=== PATIENT | male | born 1985 | race Caucasian/White ===

== ENCOUNTER 2019-11-05 10:31 | Emergency (ER) | payer OTHER, BC ==
[~2019-11-05] VITALS: Ht 172.7 cm; Wt 106.0 kg
[2019-11-05] MEDS ORDERED: SERT50TA29 (10:39)
[2019-11-05 11:48] LABS: BASO % 0.4 % (0.0-1.0); EOS # 0.1 10^3/uL (0.0-0.5); EOS % 0.5 % (0.0-3.0); HEMOGLOBIN 16.3 g/dl (13.5-17.5); LYMPH # 1.9 10^3/uL (1.5-5.0); LYMPH % 19.9 % (24.0-44.0); MEAN CORPUSCULAR VOLUME 88.2 fl (80.0-96.0); MONO # 0.7 10^3/uL (0.0-0.8); MONO % 7.2 % (0.0-5.0); NEUTROPHILS # 6.9 10^3/uL (1.5-8.5); NEUTROPHILS % 71.7 % (36.0-66.0); PLATELET COUNT, AUTOMATED 334 10^3/uL (150-450); RED BLOOD COUNT 5.44 10^6/uL (4.30-6.10); WHITE BLOOD COUNT 9.7 10^3/uL (4.0-10.0)
--- NOTE | 2019-11-05 12:07 | REP ---
UNENHANCED CT BRAIN: INDICATION: Numbness of right arm. COMPARISON: 07/02/2006 TECHNIQUE: Unenhanced axial CT images of the brain were obtained from the skull base to the vertex with coronal reconstructions provided. FINDINGS: There is no acute intracranial hemorrhage, acute cortical infarction, mass effect or hydrocephalus. There is hyper-attenuation within the left supraclinoid MCA. IMPRESSION: Possible hyperdense left MCA emmanuel in the supraclinoid region. No additional evidence or acute infarction. MRI brain with diffusion-weighted imaging could be performed for further evaluation as indicated. Unreviewed
[2019-11-05 12:17] LABS: BLOOD UREA NITROGEN 7 MG/DL (7-18); CALCIUM LEVEL 9.3 MG/DL (8.5-10.1); CARBON DIOXIDE LEVEL 25 MEQ/L (21-32); CHLORIDE LEVEL 105 MEQ/L (98-107); GLOMERULAR FILTRATION RATE > 60.0 (>60); GLUCOSE, FASTING 109 MG/DL (70-100); SODIUM LEVEL 135 MEQ/L (136-145)
[2019-11-05] MEDS ORDERED: ASPIRIN 81 MG CHEW TABLET PO ONE (13:00)
[2019-11-05 14:18] VITALS: BP 158/110
--- NOTE | 2019-11-05 14:49 | REP ---
LIMITED CERVICAL SPINE SERIES: AP and lateral views of the cervical spine performed. There is no compression fracture. There is slight reversal of the normal cervical lordosis. There is no prevertebral soft tissue swelling. Disc spaces are well preserved. IMPRESSION: Unremarkable AP and lateral cervical spine. Slight reversal of normal cervical lordosis with no significant degenerative change or evidence of fracture. Electronically Signed by Jeremi Casillas MD 11/05/2019 03:33 P
--- NOTE | 2019-11-06 08:00 | ECGEPIP ---
[facility] - ED Test Date: 2019-11-05 Pat Name: LAZARUS MORENO Department: Room: - Gender: Male Director Of Culture: trey : 1985 Requested By: LAZARUS GAN PA-C. Order Number: [id number] Reading MD: Aditya Donohue Measurements Intervals [place] Rate: 89 P: 57 MN: 138 QRS: 40 QRSD: 73 T: 37 QT: 341 QTc: 416 Interpretive Statements SINUS RHYTHM POSSIBLE LEFT ATRIAL ENLARGEMENT INCOMPLETE RIGHT BUNDLE BRANCH BLOCK NO PRIORS FOR COMPARISON Electronically Signed on 11-06-2019 8:00:13 EDT by Aditya Donohue
== END 2019-11-05 14:18 | disposition short-term general hospital (02) ==
LOC: M ED 10:31
DX: I63.50 Cerebral infarction due to unspecified occlusion or stenosis of unspecified cerebral artery (principal); R20.2 Paresthesia of skin; I45.19 Other right bundle-branch block; F41.9 Anxiety disorder, unspecified; F32.9 Major depressive disorder, single episode, unspecified